=== PATIENT | female | born 1955 | race Caucasian/White ===

== ENCOUNTER 2020-04-09 05:52 | Inpatient (IN) ==
--- NOTE | 2020-04-06 13:19 | History & Physical Report ---
Date of Service April 06, 2020 Assessment & Plan (1) Primary osteoarthritis of right knee: Treatment options discussed with the patient. She has failed conservative therapy as above. Risks, benefits and alternatives to surgery including but not limited to infection, DVT, pain, stiffness, need for revision surgery, damage to blood vessels, damage to nerves, PE, , were discussed with the patient and they wish to proceed. Plan will be for right total knee arthroplasty. Will plan on Aspirin 81mg BID x 1 mo post operatively for DVT prophylaxis and will plan on HHPT post discharge. COVID status is unknown, testing is pending. All questions answered. She will follow up post operatively. History of Present Illness Chief Complaint: Right knee pain Primary Care Provider: TATEJOSHUA OBRIEN Patient is a 65 yo female with PMHx for HTN, high cholesterol, asthma, KEN, GERD, hypothyroid who presents with long standing history of right knee pain. Pain is affecting her ability to carry out her normal daily activities. She has failed conservative therapy including a HEP and weight loss program, cortisone injections, and antiinflammatory medications. She would like to proceed with right knee replacement. Patient denies headaches, sweats, fevers, chills, double vision, blurred vision, cough, sore throat, dysphagia, chest pain, sob, wheezing, n/v/d/c, numbness, tingling, fatigue, urinary symptoms, mood disorders. ROS positive for right knee pain and stiffness. 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 Mild Cough Uncoded 04/03/20 08:00 Home Medications Home Medications Medication Instructions Recorded Confirmed Type budesonide-formoterol [Symbicort] 2 puff INHALATION Q12H 01/06/20 04/03/20 History calcium carbonate-vitamin D3 2 tab PO QAM 01/06/20 04/03/20 History [Calcium 600 with Vitamin D3] diphenhydramine HCl [Benadryl] 25 mg PO HS 01/06/20 04/03/20 History levothyroxine [Synthroid] 175 mcg PO QAM 01/06/20 04/03/20 History montelukast [Singulair] 10 mg PO PM 01/06/20 04/03/20 History multivitamin 1 tab PO QAM 01/06/20 04/03/20 History olmesartan 10 mg PO QAM 01/06/20 04/03/20 History Past Med/Surg History Social History Preferred Language: [place] Ed Physicians Required: No Beliefs That Will Affect Care: None Current Living Situation: Spouse Feels Safe at Home: Yes Safety Concerns: Feels Safe At This Time Smoking Status: Never smoker Do You Dip or Chew Tobacco: No ; Second Hand Exposure: Yes ( A CHILD) ; Tobacco Cessation Education Requested by Patient: No Hx Alcohol Use: No Hx Substance Use: No Review of Systems All systems reviewed & are unremarkable except as noted in HPI & below Physical Exam Constitutional: well developed and well nourished; no acute distress Eyes: PERRL, conjunctivae normal, anicteric sclerae ENMT: external ear and nose normal, oropharynx normal Neck: trachea midline, no thyromegaly Respiratory: normal respiratory effort, lungs clear to auscultation Cardiovascular: RRR, no murmur, no edema Musculoskeletal: Right knee: Skin is normal. No lymphadenopathy is appreciated. Mild effusion, range of motion 2 - 125 flexion, negative anterior drawer, negative posterior drawer, negative Mayi's, knee stable to varus and valgus stress at 0 to 30 of flexion. Tender to palpation medial joint line, positive Leanna's. Mild varus deformity. Skin: no rashes, warm and dry Neurologic: patellar DTR's 2+ bilat, sensation intact Psychiatric: A+Ox3, euthymic affect Results & Data Diagnostic Findings Right knee radiographs: Bone on bone medial compartment and PF compartment with periarticular osteophyte formation in all 3 compartments, subchondral sclerosis.
--- NOTE | 2020-04-06 15:36 | Anesthesiology Consultation ---
Date of Service April 06, 2020 Assessment & Plan (1) Encounter for pre-operative examination: Chart Review Chart Review: Acceptable Risk for Surgery (pending 04/06 Covid testing and DOS labs ) and Patient NOT seen in Pre Admission Testing -Preop labs not updated- CBC and PRP ordered for DOS Per nursing assessment 04/03/2020 = patient resides in [facility]. Only travels to [facility] for medical appointments. Wears mask in public. Scheduled for COVID testing 04/06/2020. Results pending. 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 Mild Cough Uncoded 04/03/20 08:00 Medications Home Medications Medication Instructions Recorded Confirmed Last Taken budesonide-formoterol [Symbicort] 2 puff INHALATION Q12H 01/06/20 04/03/20 Unknown calcium carbonate-vitamin D3 2 tab PO QAM 01/06/20 04/03/20 Unknown [Calcium 600 with Vitamin D3] diphenhydramine HCl [Benadryl] 25 mg PO HS 01/06/20 04/03/20 Unknown levothyroxine [Synthroid] 175 mcg PO QAM 01/06/20 04/03/20 Unknown montelukast [Singulair] 10 mg PO PM 01/06/20 04/03/20 Unknown multivitamin 1 tab PO QAM 01/06/20 04/03/20 Unknown olmesartan 10 mg PO QAM 01/06/20 04/03/20 Unknown Past Medical History Medical History Asthma stable GERD (gastroesophageal reflux disease) controlled Hiatal hernia Hx of eczema Hypertension Hypothyroidism Morbid obesity Osteoarthritis Sleep apnea CPAP Past Family History Family History Father Family history of diabetes mellitus Mother Family history of diabetes mellitus Past Surgical History Surgical History Hx of cardiac cath 20 YR AGO GARCIA Hx of cholecystectomy Hx of colonoscopy Hx of meniscectomy of right knee Hx of total hysterectomy Social History Smoking Status: Never smoker Do You Dip or Chew Tobacco: No Hx Alcohol Use: No Hx Substance Use: No Testing Laboratory Results 01/13/20= PT: 10.3 PTT: 27.1 INR: 1.0 Electrocardiogram Date: 01/13/20 Findings: + NSR @ (74) Chest X-Ray Date: 01/13/20 Findings: + NAD Stress Test Date: 12/03/18 Type: exercise Exercise stress EKG is negative for ischemia at a workload of 7 METS. MPHR =85%
[2020-04-09] MEDS ORDERED: ROPIVACAINE 0.5% HCL/PF 150 MG, BUPIVACAINE 0.5% MPF 30 ML, EPINEPHrine 30MG/30ML (OR U... INFIL SCH (06:00)
[2020-04-09] MEDS ORDERED: LR 500ML BOLUS, THEN 15ML/HR IV SCH (06:00)
[2020-04-09] MEDS ORDERED: BUPIVACAINE 0.5 % 5 MG/1 ML PF 10ML VIAL ONE (06:16)
[2020-04-09] MEDS ORDERED: PROPOFOL IV EMULSION 10 MG/ML 20 ML VIAL IV ONE (06:45)
[2020-04-09] MEDS ORDERED: MIDAZOLAM HCL 1 MG/ML 2ML VIAL ONE (06:45)
[2020-04-09] MEDS ORDERED: LIDOCAINE HCL 2% 2 ML VIAL/AMP(20MG/ML) INFIL ONE (06:45)
[2020-04-09] MEDS ORDERED: KETAMINE HCL INJ 50 MG/ML 10 ML VIAL ONE (06:47)
[2020-04-09] MEDS ORDERED: ATROPINE SULFATE 0.1 MG/ML 10ML SYR IV PRN (06:47)
[2020-04-09] MEDS ORDERED: ONDANSETRON INJ 2 MG/ML 2 ML VIAL IV PRN ×2 (06:47→11:19)
[2020-04-09] MEDS ORDERED: ePHEDrine sulfate 50 MG/ML AMP IV PRN (06:47)
[2020-04-09] MEDS ORDERED: fentaNYL citrate 100 MCG/2 ML VIAL IV PRN (06:47)
--- NOTE | 2020-04-09 07:03 | History & Physical Bridge Note ---
Date of Service April 09, 2020 History & Physical Bridge Note I have examined the patient, reviewed the History & Physical and in the interval since the performance of the History & Physical I have noted the following changes of clinical significance: no changes noted
[2020-04-09] MEDS ORDERED: BACITRACIN INJ 50,000 UNIT VIAL ONE (07:08)
[2020-04-09] MEDS ORDERED: ACETAMINOPHEN 500 MG TAB ONE (07:26)
[2020-04-09] MEDS ORDERED: METOCLOPRAMIDE HCL 10 MG TABLET ONE (07:26)
[2020-04-09] MEDS ORDERED: dexAMETHasone 4 MG TAB PO ONE (07:26)
[2020-04-09] MEDS ORDERED: GABAPENTIN 300 MG CAP ONE (07:26)
[2020-04-09] MEDS ORDERED: FAMOTIDINE 20 MG TAB ONE (07:26)
[2020-04-09] MEDS ORDERED: TRANEXAMIC ACID / 0.7% NACL 1000MG/100ML BAG IV ONE ×3 (07:27→07:46)
[2020-04-09] MEDS ORDERED: CEFAZOLIN 2,000 MG/15 ML IV PUSH IV ONE (07:27)
[2020-04-09] MEDS: CeleBREX 200 MG CAP ONE (07:31)
[2020-04-09] MEDS ORDERED: SCOPOLAMINE 1.5 MG TDSY TD ONE (08:58)
[2020-04-09] MEDS ORDERED: ONDANSETRON INJ 2 MG/ML 2 ML VIAL ONE (08:58)
--- NOTE | 2020-04-09 09:41 | Operative Report ---
Post Operative Report Pre & Post Diagnosis Operation Date: 04/09/20 07:50 Pre-Op Diagnosis: Unilateral Primary Osteoarthritis, Right Knee Post-Op Diagnosis: Unilateral Primary Osteoarthritis, Right Knee I identified the patient and participated in the time-out.: Yes Procedure Operation Date: 04/09/20 07:50 Actual Procedures p Right Total Knee Arthroplasty, Cemented(Right) - Marek Luciano MD Surgeon Marek Luciano MD Dry End Operator Jimenez Styles PA-C Estimated Blood Loss 20 Findings Consistent with Post-Op Diagnosis Specimens Bone and tissue Drains None Anesthesia Type MAC Spinal Regional Complications none Disposition Accompanied Patient To Recovery: No Disposition: Recovery Room Indications The patient is a 65-year-old female longstanding arthritic change in the right knee. She is [id number] medial compartment with arthritic change in the low 3 compartments. She has failed conservative measures including injection, anti- inflammatories, rehab. She wishes to proceed with a right total knee arthroplasty. Description of Procedure Risks benefits and alternatives of surgery including but not limited to infection, DVT, pain, stiffness, need for surgery, damage to blood vessels, damage to nerves or risks of anesthesia were discussed with the patient and they wished to proceed. The patient was identified and the laterality was confirmed and marked. They received a preoperative antibiotic as well as a spinal anesthetic and an abductor canal block. A well-padded tourniquet was applied and then the limb was prepped and draped in standard manner with ChloraPrep. The limb was exsanguinated and the tourniquet was inflated. I made a standard anterior incision. I sharply incised the skin then utilized Bovie electrocautery to achieve hemostasis. I made a medial parapatellar arthrotomy and mobilized the patella laterally. I then excised the anterior horns of the medial and lateral meniscus as well as the infrapatellar fat pad. I elevated a portion of the MCL off of the tibia. I then pinned into place a patient-matched distal femoral cutting guide. She had a significant pr eoperative flexion contracture so I elected to take an additional 2 mm off of the distal femur. The metallic distal femoral cutting guide was placed positioning for additional 2 mm cut. I then made my distal femoral resection. I then pinned into place the 5 in 1 femoral cutting guide. I made my anterior, posterior and chamfer cuts. I then excised the cruciates and the remaining portions of the menisci. I then pinned into place a patient- matched tibial cutting guide and made my tibial resection. I then pinned into place the tibial plate a utilizing alignment kieran to confirm rotation. I then cut for the post. Utilizing a lamina wire wrapper machine operator and I then removed posterior osteophytes off the femur. I then placed a trial femur into position and cut for the trochlear component. I then sequentially trialed to size the polyethylene until there was good soft tissue balancing and range of motion. I then prepared the patella with a freehand cut utilizing sagittal saw. I sized and drilled for the patella. There was good tracking to the patella no lateral release was needed. All the trial components were removed. The deep tissues were anesthetized with an ortho mix solution. Then with Simplex HV with gentamicin cement, I cemented my definitive components. Definitive components, Coreas and Nephew Lilian 2: Femur 6 Tibia 4 Poly 9 Patella 29 oval A betadine soak was performed. The arthrotomy was closed with interrupted #1 Vicryl suture subcutaneous tissue was closed with interrupted 2-0 Vicryl suture. The skin was closed with with wood. An Acticoat and Jessica dressing were placed. Sterile dressings were applied. All needle and sponge counts were correct at the end of the procedure patient was transferred to the PACU in stable condition without apparent complication. The PA-C was necessary for assistance with procedure for assistance in positioning, prepping, draping, retraction and closure. I attest to the content of the Intraoperative Record and any orders documented therein. Any exceptions are noted below.
--- NOTE | 2020-04-09 10:37 | Anesthesiology Progress Note ---
Date of Service April 09, 2020 Anesthesia Post Procedure Vital Signs Vital Signs: Temp Pulse Pulse Resp BP Pulse Ox 04/09/20 10:30 70 16 124/64 95 04/09/20 10:20 72 18 128/63 93 04/09/20 10:14 97.2 F L 72 13 123/60 97 04/09/20 06:28 97.9 F 92 H 16 174/86 H 97 Pain Intensity Right Knee: Pain Intensity: 0 Transfer of Care Handoff Completed per policy Notes Mental Status: alert / awake / arousable and participated in evaluation Patient Amnestic to Procedure: Yes Nausea / Vomiting: adequately controlled Pain: adequately controlled Airway Patency, RR, SpO2: stable & adequate BP & HR: stable & adequate Hydration State: stable & adequate Neuraxial Anesthesia: was administered and sensory block is resolving Anesthetic Complications: no major complications apparent and Pt Satisfied with anesthetic care
--- NOTE | 2020-04-09 10:41 | XRay Report ---
XR knee RT 1 or 2V routine HISTORY: 65 years-old Female Surgical Post Op right knee total joint arthroplasty. History of degene rative joint disease COMPARISON: None TECHNIQUE: 2 views of the right knee FINDINGS: Right knee total joint arthroplasty and patella resurfacing. Anterior midline skin wood are noted along with expected postsurgical soft tissue swelling and deep tissue air with surgical drainage cath eter. Satisfactory alignment without acute fracture or retained foreign body. IMPRESSION: Right knee total joint arthroplasty with expected postoperative findings. ACT 112: Negative or not required by law. The above report was generated using voice recognition software. It may contain grammatical, syntax o r spelling errors. Electronically signed by: Joaquin Dover M.D. 04/09/2020 10:39 AM
[2020-04-09] MEDS ORDERED: NALOXONE HCL 0.4 MG/1 ML VIAL/CARP IV PRN (11:19)
[2020-04-09] MEDS ORDERED: OXYCODONE HCL IR 5 MG TAB (IMMEDIATE RELEASE) PO PRN (11:19)
[2020-04-09] MEDS ORDERED: METOCLOPRAMIDE HCL INJ 5 MG/ML 2 ML VIAL IV PRN (11:19)
[2020-04-09] MEDS ORDERED: bisacodyL 10 MG SUPP PR PRN (11:19)
[2020-04-09] MEDS ORDERED: SODIUM CHLORIDE 0.9% 1000ML 1,000 ML IV SCH (11:19)
[2020-04-09] MEDS ORDERED: HYDROmorphone INJ 0.5 MG/0.5 ML SYR IV PRN (11:19)
[2020-04-09] MEDS ORDERED: MAGNESIUM HYDROXIDE SUSP 30 ML UDC PO PRN (11:19)
[2020-04-09] MEDS: ACETAMINOPHEN 500 MG TAB PO SCH ×2 (14:05→21:00)
[2020-04-09] MEDS: CEFAZOLIN 2000MG 2,000 MG/15 ML SYR IV SCH (15:33)
[2020-04-09] MEDS ORDERED: MONTELUKAST SODIUM 10 MG TABLET PO SCH (21:00)
[2020-04-09] MEDS: ASPIRIN 81 MG ECTAB PO SCH (21:00)
[2020-04-09] MEDS ORDERED: CeleBREX 200 MG CAP PO SCH (21:00)
[2020-04-09] MEDS: DOCUSATE SODIUM 100 MG CAP PO SCH (21:00)
[2020-04-09] MEDS ORDERED: SENNA 8.6 MG TAB PO SCH (21:00)
[2020-04-10] MEDS: CEFAZOLIN 2000MG 2,000 MG/15 ML SYR IV SCH (00:19)
[2020-04-10] MEDS: ACETAMINOPHEN 500 MG TAB PO SCH ×2 (05:51→10:35)
[2020-04-10 06:16] LABS: Hematocrit (blood only) 31.7 % (37-47); Mean Corpuscular Hemoglobin 33.1 pg (25-34); Mean Corpuscular Hgb Conc 34.7 g/dL (32-36); Mean Corpuscular Volume 95.5 fL (80-100); Mean Platelet Volume 10.2 fL (7.4-10.4); Platelet Count 276 K/uL (130-400); RDW Coefficient of Variation 13.5 % (11.5-14.5); RDW Standard Deviation 46.8 fL (36.4-46.3); Red Blood Count 3.32 M/uL (4.2-5.4)
[2020-04-10] MEDS ORDERED: LEVOTHYROXINE SODIUM 175 MCG TABLET PO SCH (06:30)
[2020-04-10 06:53] LABS: BUN Creatinine Ratio 18.3 (10-20); Calcium 8.6 mg/dl (8.5-10.1); Creatinine Clr Calc Pharmacy 61.7 ml/min; Est GFR (African American) 54.2; Est GFR (Non-African American) 46.8; Potassium 3.8 mmol/L (3.5-5.1)
--- NOTE | 2020-04-10 07:12 | Orthopedic Progress Note ---
Date of Service April 10, 2020 Assessment & Plan (1) Primary osteoarthritis of right knee: POD#1 Right TKA -PT/OT -Pain management -DVT prophylaxis-SCDs, ASA 81mg BID, TEDs -AM labs-hemoglobin at 11 this morning. Mild elevation of creatinine to 1.2. -D/C planning-home with HHPT likely later today as long as PT goes well. Admission and Anticipated Discharge Date Admission Date: April 09, 2020 Subjective Patient is seen in bed resting comfortably. She is doing well, pain well controlled. Has been up ambulating without difficulty. No chest pain, sob, light headedness, dizziness. Review of Systems Review of Systems: All systems reviewed & are unremarkable except as noted in HPI & below Physical Exam Physical Exam: Dressing to right knee is c/d/i. Toes mobile, good dorsiflexion. No calf tenderness, calf soft. Distally n/v status and sensation intact. Constitutional: well developed and well nourished; no acute distress Results & Data ([facility]) Vital Signs (Past 12 Hours) Vital Signs Temp Pulse Pulse Resp BP Pulse Ox 04/10/20 06:53 36.4 C L 87 16 109/60 93 04/10/20 03:42 68 16 96 04/10/20 03:11 36.6 C 69 18 107/66 97 04/09/20 23:47 36.9 C 77 16 108/65 94 04/09/20 21:37 65 16 95 04/09/20 20:19 75 16 103/57 L 94 Laboratory Results H & H 04/10/20 Range/Units 05:57 Hgb 11.0 L (12.0-16.0) g/dL Hct 31.7 L (37-47) %
[2020-04-10] MEDS: ASPIRIN 81 MG ECTAB PO SCH (08:57)
[2020-04-10] MEDS: DOCUSATE SODIUM 100 MG CAP PO SCH (08:57)
[2020-04-10] MEDS ORDERED: CALCIUM 600MG + VIT D 400 IU TAB PO SCH (09:00)
[2020-04-10] MEDS ORDERED: OLMESARTAN MEDOXOMIL 5 MG TAB PO SCH (09:00)
[2020-04-10] MEDS ORDERED: MULTIVITAMIN TAB PO SCH ×2 (09:00)
[2020-04-10] MEDS ORDERED: FLUTICASONE/VILANTEROL 200/25MCG 14 PUFFS/INHALER INH SCH (09:00)
--- NOTE | 2020-04-11 15:29 | Discharge Summary ---
Date of Service April 11, 2020 Admission HPI Per Admitting Provider Patient is a 65 yo female with PMHx for HTN, high cholesterol, asthma, KEN, GERD, hypothyroid who presents with long standing history of right knee pain. Pain is affecting her ability to carry out her normal daily activities. She has failed conservative therapy including a HEP and weight loss program, cortisone injections, and antiinflammatory medications. She would like to proceed with right knee replacement. Patient denies headaches, sweats, fevers, chills, double vision, blurred vision, cough, sore throat, dysphagia, chest pain, sob, wheezing, n/v/d/c, numbness, tingling, fatigue, urinary symptoms, mood disord ers. ROS positive for right knee pain and stiffness. Admission Exam Per Admitting Provider Constitutional: well developed and well nourished; no acute distress Eyes: PERRL, conjunctivae normal, anicteric sclerae ENMT: external ear and nose normal, oropharynx normal Neck: trachea midline, no thyromegaly Respiratory: normal respiratory effort, lungs clear to auscultation Cardiovascular: RRR, no murmur, no edema Musculoskeletal: Right knee: Skin is normal. No lymphadenopathy is appreciated. Mild effusion, range of motion 2 - 125 flexion, negative anterior drawer, negative posterior drawer, negative Mayi's, knee stable to varus and valgus stress at 0 to 30 of flexion. Tender to palpation medial ahmet int line, positive Leanna's. Mild varus deformity. Skin: no rashes, warm and dry Neurologic: patellar DTR's 2+ bilat, sensation intact Psychiatric: A+Ox3, euthymic affect Principal Diagnosis Right knee osteoarthritis Discharge Exam Constitutional well developed and well nourished; no acute distress Eyes PERRL, conjunctivae normal, anicteric sclerae ENMT external ear and nose normal, oropharynx normal Neck trachea midline, no thyromegaly Respiratory normal respiratory effort, lungs clear to auscultation Cardiovascular RRR, no murmur, no edema Skin no rashes, warm and dry Neurologic patellar DTR's 2+ bilat, sensation intact Psychiatric A+Ox3, euthymic affect Discharge Data Allergies Allergy/AdvReac Type Severity Reaction Status Date / Time codeine AdvReac Mild GI upset, Verified 04/09/20 06:21 dizziness 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 She tolerated procedure well. The Patient had an uneventful hospital course. Post-operatively, her activity was progressed and well tolerated. They participated in PT with ambulation distance of 400 feet. ROM of operative knee reached 97 degrees. Labs remained stable- lowest hemoglobin recorded: 11, mild increase in creatinine to 1.22. Pain controlled on oral medications. Please refer to daily progress notes and PT notes for complete details. After exam on 04/10/20, patient was felt to be stable for discharge home with home health PT. Patient will f/u in the office in about 2 weeks for further evaluation including x-rays and incision check, sooner if having any issues or concerns. POD#1 Right TKA -PT/OT -Pain management -DVT prophylaxis-SCDs, ASA 81mg BID, TEDs -AM labs-hemoglobin at 11 this morning. Mild elevation of creatinine to 1.2. -D/C planning-home with HHPT likely later today as long as PT goes well. Total Time Total Time Spent Total Time Spent (In Minutes): 20 Discharge Plan Discharge Items Patient Disposition: Home - Home Health Services Reason For Visit: Unilateral Primary Osteoarthritis, Right Knee Discharge Diagnosis: Right knee osteoarthritis Activity: Per Instructions section Non-emergency contact: Surgeon Call non-emergency contact if: you have any medication questions, your pain is not controlled, your pain is worsening, your pain is concerning for you, you have a fever, your temperature is above 101, your wound has increased redness, your wound has increased drainage and your wound pain has increased Follow-up/Referrals: TATE OBRIEN D.O. [Primary Care Provider] - Diet: Regular Addtl Attending Provider Instructions: ACTIVITY RECOMMENDATIONS: SELF CARE INSTRUCTIONS AFTER TOTAL KNEE REPLACEMENT A. You may need to continue a physical therapy program after discharge from the hospital. There are several options available to you. Your doctor will assist you in selecting the best one for you. 1. An out-patient facility 2 to 3 times a week for therapy or home therapy. 2. Continue working on all exercises taught to you in the hospital. Your goals should be to increase bending of your knee to 90 degrees and beyond and to fully straighten your knee. B. You may progress at your own pace from walking with a walker or crutches to a cane; then to no assistive devices. C. Make walking a part of your daily routine. Be up as much as comfortable with rest periods throughout the day. Rest with leg elevation is very important. Use the ice wrap frequently for the first 3-4 weeks. D. There are no restrictions on activities. You may ride in a car, shop, participate in grading machine feeder and all social activities. E. Wear the long elastic stockings (MIRA hose) 20 hours a day for 2 weeks after surgery. They can be removed several times a day for laundering and for a bath. F. You may shower, no tub baths until cleared by your doctor. SPECIAL CARE INSTRUCTIONS: VERY IMPORTANT TO READ AND REVIEW A. There are a few signs you need to watch for after you are home. Call [facility] if you notice any of the followin. Increased severe knee pain. Some pain is expected especially when you exercise. 2. Increased swelling in your leg or knee; pain or swelling of the calf muscle in either lower leg. 3. Any fluid drainage from the incision. 4. Shortness of breath or chest pain. B. Please call [facility] at if you have any concerns or questions about your operation or recovery. The doctor or his nurse will return your call promptly. C. You must take antibiotics before dental work, bladder, bowel or other surgery. Your doctor will provide you with a permanent care to carry describing this precaution. IMPORTANT: * REMEMBER TO TAKE ASPIRIN, 81 MG, TWICE DAILY FOR 4 WEEKS UNLESS OTHERWISE DIRECTED. THIS IS YOUR BLOOD THINNER. * HIGH RISK PATIENTS MAY BE PRESCRIBED A STRONGER BLOOD THINNER. THIS WILL BE PROVIDED AT DISCHARGE. * CALL IF INCREASED PAIN, REDNESS, DRAINAGE OR FEVER GREATER THAT 101. * WEAR MIRA HOSE 20 HOURS PER DAY FOR 2 WEEKS. This is a large suction dressing covering your incision. This will help pull any excess drainage from the wound and allow your incision to heal properly. You may shower with this if you can keep the unit outside of the shower. If any bleeding or leakage is noted please call your doctor's office. This will remain on your incision for 7 days and then should be removed. This can be done yourself or by the home nursing staff if applicable. The entire unit is disposable once removed. Once removed, keep incision clean and dry. If redness or drainage is noted, please call your surgeon. FOLLOW UP VISIT: If appointment is not already scheduled: Please call [facility] to make a follow-up appointment for 2 weeks after your surgery at . Pending Studies at Discharge: No Stand-Alone Forms: [facility] [employer], Opioid Pain Management, Smoking Cessation Medications and DC Order Prescriptions: New aspirin 81 mg Tablet,Delayed Release (Dr/Ec) 81 mg PO BID Qty: 60 RF: 0 acetaminophen 500 mg Tablet 1,000 mg PO Q8 Qty: 60 RF: 0 oxycodone 5 mg Tablet 5 - 10 mg PO .Q4H-6H MDD 6 PRN (Reason: pain) Qty: 30 RF: 0 docusate sodium 100 mg Capsule 100 mg PO BID Qty: 30 RF: 0 Continued multivitamin Tablet 1 tab PO QAM RF: 0 levothyroxine [Synthroid] 175 mcg Tablet 175 mcg PO QAM RF: 0 diphenhydramine HCl [Benadryl] 25 mg Capsule 25 mg PO HS RF: 0 montelukast [Singulair] 10 mg Tablet 10 mg PO PM RF: 0 olmesartan 20 mg Tablet 10 mg PO QAM RF: 0 budesonide-formoterol [Symbicort] 160-4.5 mcg/actuation Hfa Aerosol Inhaler 2 puff INHALATION Q12H RF: 0 Calcium 600 with Vitamin D3 600 mg(1,500mg) -400 unit Tablet,Chewable 2 tab PO QAM RF: 0 Discharge Orders: Discharge Order (Routine); Ordered 04/10/20 Ordered By: Jimenez Styles Admission Data Admit Date/Time: 04/09/20 10:24 Attending Provider: Marek Luciano Admit Provider: Marek Luciano Primary Care Provider: TATE OBRIEN Other Interventions: Discharge Summary Assessment (RN) Last Done: 04/10/20 09:41 DC Date/Time DO NOT enter until pt leaves facility: 04/10/20 11:09
== END 2020-04-10 11:09 | disposition home health service (06) | DRG 470 ==
LOC: ASU 05:52 → 3E 10:24

== ENCOUNTER 2020-08-11 06:07 | Inpatient (IN) ==
--- NOTE | 2020-07-17 11:29 | Anesthesiology Consultation ---
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 Mild Cough Uncoded 07/17/20 10:58 Medications Home Medications Medication Instructions Recorded Confirmed Last Taken Calcium 600 with Vitamin D3 2 tab PO QAM 01/06/20 07/17/20 02/08/20 budesonide-formoterol [Symbicort] 2 puff INHALATION Q12H 01/06/20 07/17/20 03/09/20 diphenhydramine HCl [Benadryl] 25 mg PO HS 01/06/20 07/17/20 04/08/20 20:00 levothyroxine [Synthroid] 175 mcg PO QAM 01/06/20 07/17/20 04/09/20 03:30 montelukast [Singulair] 10 mg PO PM 01/06/20 07/17/20 04/07/20 multivitamin 1 tab PO QAM 01/06/20 07/17/20 04/02/20 olmesartan 10 mg PO QAM 01/06/20 07/17/20 04/08/20 06:00 acetaminophen 1,000 mg PO Q8 #60 tab 04/10/20 07/17/20 Unknown aspirin 81 mg PO BID #60 tab 04/10/20 07/17/20 Unknown docusate sodium 100 mg PO BID #30 cap 04/10/20 07/17/20 Unknown allopurinol 100 mg PO QPM 07/17/20 07/17/20 Unknown ergocalciferol (vitamin D2) 1,250 mcg PO 2XWK 07/17/20 07/17/20 Unknown [Vitamin D2] Past Medical History Medical History Asthma stable GERD (gastroesophageal reflux disease) controlled Gout Hiatal hernia Hx of eczema Hypertension Hypothyroidism Morbid obesity Osteoarthritis Sleep apnea CPAP Exercise / Class Metabolic Activity III < 4 Walking/Shop/Light housework Past Family History Family History Father Family history of diabetes mellitus Mother Family history of diabetes mellitus Past Surgical History Surgical History History of right knee joint replacement 04/09/2020 [facility] Hx of cardiac cath 20 YR AGO GARCIA - no stents Hx of cholecystectomy Hx of colonoscopy Hx of meniscectomy of right knee Hx of total hysterectomy Past Anesthesia History No Hx of Anesthesia Complications and No Family Hx of Anesthesia Complications History of PONV No Hx of PONV and No Hx of Motion Sickness Social History Smoking Status: Never smoker Do You Dip or Chew Tobacco: No Hx Alcohol Use: No Hx Substance Use: No Testing Laboratory Results Blood Type A Positive 07/16/20 11:19 Antibody Screen NEGATIVE 07/16/20 11:19 Electrocardiogram Date: 01/13/20 Findings: + NSR @ (@ 74) Chest X-Ray Date: 01/13/20 Findings: + NAD Stress Test Date: 12/03/18 Type: exercise Findings: + WNL
--- NOTE | 2020-07-31 09:32 | History & Physical Report ---
Date of Service July 31, 2020 date of surgery: 08/11/20 procedure: Left Total Knee Arthroplasty Assessment & Plan (1) Arthritis of knee, left: Risks and benefits of procedure discussed in detail today, patient would like to proceed with a Left total knee replacement at [facility] as scheduled. obtain PATs at [facility]. Will place on ASA 81mg po bid x 1 month post op, f/u 2 weeks post op for routine post-operative care and x-ray, sooner if having any problems. will make arrangements for HHPT at the time of discharge. At this point in time, has failed conservative measures and would like to proceed with surgical intervention. The risks and benefits have been discussed including, but not limited to, risk of infection, nerve injury, stiffness, loss of motion, failure to improve, etc. Reasonable outcomes and options of treatment were discussed. An explanation of appropriate alternatives to the procedure that may be advantageous were discussed and their risks and benefits, as well as the risks and benefits of not proceeding with treatment. I offered to answer any additional inquiries concerning the treatment involved. All the patient's questions were answered. The patient is agreeable, understanding of the treatment plan and alternatives, and wishes to proceed with the treatment plan. History of Present Illness Chief Complaint: left knee pain Primary Care Provider: Law Dunbar DO Samantha is a 65 year old female who complains of left knee pain, presents for pre- op evaluation prior to a left total knee replacement by dr Lopez at [facility]. she complains of pain, crepitus, decreased range of motion, instability and stiffness in her left knee. She states that the symptoms have been chronic and non-traumatic. Currently the patient states that the symptoms are moderate- severe. The pain is described as aching, sharp and throbbing. The symptoms occur continuously. The symptoms are aggravated by ascending stairs, daily activities, first steps while awake walking. Prior NSAIDs include Aleve and Motrin. She has failed conservative therapy including a HEP and weight loss program, cortisone injections, and antiinflammatory medications. 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 Mild Cough Uncoded 07/17/20 10:58 Home Medications Home Medications Medication Instructions Recorded Confirmed Type Calcium 600 with Vitamin D3 2 tab PO QAM 01/06/20 07/17/20 History budesonide-formoterol [Symbicort] 2 puff INHALATION Q12H 01/06/20 07/17/20 History diphenhydramine HCl [Benadryl] 25 mg PO HS 01/06/20 07/17/20 History levothyroxine [Synthroid] 175 mcg PO QAM 01/06/20 07/17/20 History montelukast [Singulair] 10 mg PO PM 01/06/20 07/17/20 History multivitamin 1 tab PO QAM 01/06/20 07/17/20 History olmesartan 10 mg PO QAM 01/06/20 07/17/20 History acetaminophen 1,000 mg PO Q8 #60 tab 04/10/20 07/17/20 Rx aspirin 81 mg PO BID #60 tab 04/10/20 07/17/20 Rx docusate sodium 100 mg PO BID #30 cap 04/10/20 07/17/20 Rx allopurinol 100 mg PO QPM 07/17/20 07/17/20 History ergocalciferol (vitamin D2) 1,250 mcg PO 2XWK 07/17/20 07/17/20 History [Vitamin D2] Past Med/Surg History Medical History Asthma stable GERD (gastroesophageal reflux disease) controlled Gout Hiatal hernia Hx of eczema Hypertension Hypothyroidism Morbid obesity Osteoarthritis Sleep apnea CPAP Surgical History History of right knee joint replacement 04/09/2020 [facility] Hx of cardiac cath 20 YR AGO GARCIA - no stents Hx of cholecystectomy Hx of colonoscopy Hx of meniscectomy of right knee Hx of total hysterectomy Family History Father Family history of diabetes mellitus Mother Family history of diabetes mellitus Social History Smoking Status: Never smoker Second Hand Exposure: Yes (as a child); Hx Alcohol Use: No Hx Substance Use: No Preferred Language: Kinyarwanda Communication Ability: Effective Hand Reamer Required: No Beliefs That Will Affect Care: None Current Living Situation: Spouse Feels Safe at Home: Yes Assistive Devices: CPAP, Glasses and Walker Review of Systems Review of Systems: All systems reviewed & are unremarkable except as noted in HPI & below Constitutional: no fever, no chills and no sweats Respiratory: no cough and no dyspnea Cardiovascular: no chest pain, no dyspnea and no orthopnea Gastrointestinal: no abdominal pain, no nausea and no vomiting Musculoskeletal: as per Subjective / HPI Physical Exam Physical Exam: HT: 5ft 6in WT: 117kg BP: 132/96 Constitutional: WD/WN, vitals as above no acute distress Respiratory: normal respiratory effort, lungs clear to auscultation no respiratory distress, no labored breathing and does not use accessory muscles Cardiovascular: RRR, no murmur, no edema Gastrointestinal (Abdomen): normal bowel sounds, soft, nontender, no hepato splenomegaly Musculoskeletal: Knee: + knee abnormal to inspection (left knee- ), + effusion (+1 effusion), + limited ROM of knee (ROM 0/3/110), + knee ROM with crepitation, + joint line tenderness (medial joint line) and + Leanna's sign positive; no deformity, no skin erythema, no ecchymosis, no surgical incision, no valgus laxity, no varus laxity, anterior drawer test negative, Mayi's sign negative and pivot shift test negative Results & Data Results & Data ([facility]) Diagnostic Findings Left Knee X-ray: left knee series confirm advanced degenerative changes to the left knee, greatest medial compartments and patellofemoral joint, showing joint space narrowing, osteophyte formation and subchondral sclerosis. no acute bony pathology noted.
[~2020-08-11 06:07] MED LIST: ACETAMINOPHEN 500 MG TAB PO SCH; CeleBREX 200 MG CAP PO SCH; FAMOTIDINE 20 MG TAB PO SCH; GABAPENTIN 600 MG DOSE PO SCH; LR 500ML BOLUS, THEN 15ML/HR IV SCH; METOCLOPRAMIDE HCL 10 MG TABLET PO SCH; ROPIVACAINE 0.5% HCL/PF 150 MG, BUPIVACAINE 0.5% MPF 30 ML, EPINEPHrine 30MG/30ML (OR U... INFIL SCH; TRANEXAMIC ACID 1,000 MG **IV Intra-op IV SCH; TRANEXAMIC ACID 1,000 MG **IV Pre-op IV SCH; ceFAZolin 2000MG 2,000 MG/15 ML SYR IV SCH; dexAMETHasone 4 MG TAB PO SCH
[2020-08-11] MEDS ORDERED: BUPIVACAINE/EPINEPHRINE 0.25% 1:200,000 30 ML VIAL ONE (06:31)
[2020-08-11] MEDS ORDERED: BUPIVACAINE 0.5 % 5 MG/1 ML PF 10ML VIAL ONE (06:31)
[2020-08-11] MEDS ORDERED: fentaNYL citrate 100 MCG/2 ML VIAL ONE (07:18)
[2020-08-11] MEDS ORDERED: MIDAZOLAM HCL 1 MG/ML 2ML VIAL ONE ×2 (07:18)
[2020-08-11] MEDS ORDERED: LIDOCAINE HCL 2% 2 ML VIAL/AMP(20MG/ML) INFIL ONE (07:19)
[2020-08-11] MEDS ORDERED: PROPOFOL IV EMULSION 10 MG/ML 20 ML VIAL IV ONE ×3 (07:19→10:20)
[2020-08-11] MEDS ORDERED: PHENYLEPHRINE 100MCG/ML 5ML SYR ONE (07:19)
[2020-08-11] MEDS ORDERED: ePHEDrine sulfate 50 MG/ML SYR ONE (07:19)
--- NOTE | 2020-08-11 07:35 | History & Physical Bridge Note ---
Date of Service August 11, 2020 History & Physical Bridge Note I have examined the patient, reviewed the History & Physical and in the interval since the performance of the History & Physical I have noted the following changes of clinical significance: no changes noted
[2020-08-11] MEDS ORDERED: BACITRACIN INJ 50,000 UNIT VIAL ONE (07:40)
[2020-08-11] MEDS ORDERED: ORTHO JOINT ANESTHETIC ONE (07:40)
[2020-08-11] MEDS ORDERED: HYDROmorphone INJ 2 MG/ML SYR/VIAL IV PRN (08:10)
[2020-08-11] MEDS ORDERED: ONDANSETRON INJ 2 MG/ML 2 ML VIAL IV PRN ×2 (08:10→12:30)
[2020-08-11] MEDS ORDERED: PROMETHAZINE HCL 12.5 MG in SODIUM CHLORIDE 0.9% 50 ML IV PRN (08:10)
[2020-08-11] MEDS ORDERED: ATROPINE SULFATE 0.1 MG/ML 10ML SYR IV PRN (08:10)
[2020-08-11] MEDS ORDERED: ePHEDrine sulfate 50 MG/ML AMP IV PRN (08:10)
[2020-08-11] MEDS ORDERED: fentaNYL citrate 100 MCG/2 ML VIAL IV PRN (08:10)
--- NOTE | 2020-08-11 10:12 | Operative Report ---
Post Operative Report Pre & Post Diagnosis Operation Date: 08/11/20 08:35 Pre-Op Diagnosis: Left Knee Osteoarthritis Post-Op Diagnosis: Left Knee Osteoarthritis I identified the patient and participated in the time-out.: Yes Procedure Operation Date: 08/11/20 08:35 Actual Procedures p Left Total Knee Arthroplasty(Left) utilizing [employer] journey 2 patient matched total knee arthroplasty size 5 femur 4 tibia 9 polyethylene 29 oval patella- Pedro Lopez DO Surgeon Pedro Lopez DO Professional Development Manager Alfredo TRAN Estimated Blood Loss 5 Findings Consistent with Post-Op Diagnosis Patient presents with severe end-stage tricompartmental degenerative joint disease left knee varus alignment subchondral cystic changes marginal osteophytes subchondral eburnated [id number] with moderate to large effusion Specimens Bone and cartilage Drains Medium bore Hemovac Anesthesia Type MAC Spinal Regional Complications none Disposition Accompanied Patient To Recovery: No Disposition: Recovery Room Indications Patient presents with severe end-stage tricompartmental degenerative joint disease no response to conservative basically physical therapy anti- inflammatories relative rest activity modification corticosteroid injections viscosupplementation the above intraoperative findings were noted Description of Procedure After proper prepping and draping of the left lower extremity anterior midline incision was made over the region of the extensor extensor mechanism after meticulous hemostasis was obtained and maintained in subcutaneous tissues a medial parapatellar incision was made The patella was subluxed lateralward the medial lateral gutter were cleaned from any hypertrophic synovitis and scar tissue of the distal femoral block was placed and the distal femoral osteotomy cut was made subsequently the chamfers anterior and posterior osteotomy cuts were made utilizing the 4-in-1 block the tibia was subsequently subluxed anteriorward medial and ateral meniscal remnants were excised in their entirety remnants of the anterior and posterior cruciate ligaments were excised in their entirety excellent exposure of the proximal tibia was obtained the tibial osteotomy guide was placed on the proximal tibial osteotomy cut was made once again the knee was irrigated with copious amounts of sterile saline solution the patella was subsequently everted lateralward thickened scar tissue around the patella was removed the patella was subsequently cut utilizing a freehand technique and was drilled prepared for final preparation and placement of patella socially flexion-extension gaps were checked and the equal and symmetric trials were placed to the appropriate femoral and tibial trials with poly-spacer being placed for equal flexion and extension gaps and full range of motion including extension to 0 and flexion to 140 the trial components after having been taken to recovery range of motion was subsequently removed meticulous hemostasis was obtained and maintained subsequently a knee block injection of joint cocktail including ropivacaine 0.5% 150 mg. Bupivacaine 0.5% epinephrine 1-200,030 mL's toradol 30 mg dexamethasone 4 mg ketamine 10 mg clonidine 100 micrograms normal saline solution 30 mg was infiltrated into the soft tissues of the posterior knee medial lateral gutters and periosteal synovium special attention was paid to protect neurovascular structures at all times subsequently trial components having been removed the knee was irrigated with sterile saline solution. debris was removed the proximal tibia was subsequently prepared and was made ready for the placement of the tibial component tibial component was also cemented and tamped into position the femoral component was subsequently placed and cemented in the position the patellar component was subsequently cemented in position because hemostasis once again obtained and maintained wound having been thoroughly irrigated with debridement and debridement lavage was performed as well as a medial parapatellar incision closed with #1 Vicryl in interrupted fashion subcutaneous was closed with #2 Vicryl skin was closed with skin clips. PA-C was necessary for prepping and drapping as well as wound closure of deep fascia Sub cutaneous tissue and skin and was necessary for the case. A sterile compressive dressing was placed patient was taken to recovery in stable condition of report dictated by John I attest to the content of the Intraoperative Record and any orders documented therein. Any exceptions are noted below. I attest to the content of the Intraoperative Record and any orders documented therein. Any exceptions are noted below.
--- NOTE | 2020-08-11 10:15 | Operative Report ---
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 Alfredo TRAN Estimated Blood Loss 5 Findings Consistent with Post-Op Diagnosis Patient presents with severe end-stage tricompartmental degenerative joint disease varus alignment subchondral cystic changes marginal osteophytes varus alignment moderate to large effusion Specimens Bone and cartilage Drains Medium bore Hemovac Anesthesia Type MAC Spinal Regional Complications none Disposition Accompanied Patient To Recovery: No Disposition: Recovery Room Indications Patient presents after failed attempted conservative management with physical therapy anti-inflammatories relative rest activity modification corticosteroid injections Visco supplementation the above intraoperative findings were noted Description of Procedure After proper prepping and draping of the left lower extremity anterior midline incision was made over the region of the extensor extensor mechanism after meticulous hemostasis was obtained and maintained in subcutaneous tissues a medial parapatellar incision was made The patella was subluxed lateralward the medial lateral gutter were cleaned from any hypertrophic synovitis and scar tissue of the distal femoral block was placed and the distal femoral osteotomy cut was made subsequently the chamfers anterior and posterior osteotomy cuts were made utilizing the 4-in-1 block the tibia was subsequently subluxed anteriorward medial and ateral meniscal remnants were excised in their entirety remnants of the anterior and posterior cruciate ligaments were excised in their entirety excellent exposure of the proximal tibia was obtained the tibial osteotomy guide was placed on the proximal tibial osteotomy cut was made once again the knee was irrigated with copious amounts of sterile saline solution the patella was subsequently everted lateralward thickened scar tissue around the patella was removed the patella was subsequently cut utilizing a freehand technique and was drilled prepared for final preparation and placement of patella socially flexion-extension gaps were checked and the equal and symmetric trials were placed to the appropriate femoral and tibial trials with poly-spacer being placed for equal flexion and extension gaps and full range of motion including extension to 0 and flexion to 140 the trial components after having been taken to recovery range of motion was subsequently removed meticulous hemostasis was obtained and maintained subsequently a knee block injection of joint cocktail including ropivacaine 0.5% 150 mg. Bupivacaine 0.5% epinephrine 1-200,030 mL's toradol 30 mg dexamethasone 4 mg ketamine 10 mg clonidine 100 micrograms normal saline solution 30 mg was infiltrated into the soft tissues of the posterior knee medial lateral gutters and periosteal synovium special attention was paid to protect neurovascular structures at all times subsequently trial components having been removed the knee was irrigated with sterile saline solution. debris was removed the proximal tibia was subsequently prepared and was made ready for the placement of the tibial component tibial component was also cemented and tamped into position the femoral component was subsequently placed and cemented in the position the patellar component was subsequently cemented in position because hemostasis once again obtained and maintained wound having been thoroughly irrigated with debridement and debridement lavage was performed as well as a medial parapatellar incision closed with #1 Vicryl in interrupted fashion subcutaneous was closed with #2 Vicryl skin was closed with skin clips. PA-C was necessary for prepping and drapping as well as wound closure of deep fascia Sub cutaneous tissue and skin and was necessary for the case. A sterile compressive dressing was placed patient was taken to recovery in stable condition of report dictated by John I attest to the content of the Intraoperative Record and any orders documented therein. Any exceptions are noted below. I attest to the content of the Intraoperative Record and any orders documented therein. Any exceptions are noted below.
--- NOTE | 2020-08-11 11:28 | XRay Report ---
XR knee LT 1 or 2V routine CLINICAL HISTORY: Surgical Post Op COMPARISON: None. DISCUSSION: There are postsurgical changes of a total left knee arthroplasty and patellar resurfacing . The femoral tibial components appear well seated. Overlying skin wood and surgical drains are ev ident. There is gas within the soft tissues consistent with recent surgery IMPRESSION: Postsurgical changes of a total left knee arthroplasty. ACT 112: Negative or not required by law. Electronically signed by: Kaiden Oliva M.D. 08/11/2020 11:27 AM
--- NOTE | 2020-08-11 12:19 | Anesthesiology Progress Note ---
Date of Service August 11, 2020 Anesthesia Post Procedure Vital Signs Vital Signs: Temp Pulse Pulse Pulse Resp BP BP 08/11/20 12:06 36.6 C 84 16 112/67 08/11/20 11:40 77 16 121/58 L 08/11/20 11:30 36.6 C 79 15 115/58 L 08/11/20 11:20 77 14 113/61 08/11/20 11:10 83 16 119/56 L 08/11/20 11:00 90 16 124/59 L 08/11/20 10:54 36.2 C L 94 H 16 130/62 08/11/20 06:40 36.7 C 90 20 168/78 H Pulse Ox 08/11/20 12:06 95 08/11/20 11:40 96 08/11/20 11:30 95 08/11/20 11:20 97 08/11/20 11:10 95 08/11/20 11:00 94 08/11/20 10:54 95 08/11/20 06:40 98 Pain Intensity Left Knee: Pain Intensity: 0 Transfer of Care Handoff Completed per policy Notes Mental Status: alert / awake / arousable and participated in evaluation Patient Amnestic to Procedure: Yes Nausea / Vomiting: adequately controlled Pain: adequately controlled Airway Patency, RR, SpO2: stable & adequate BP & HR: stable & adequate Hydration State: stable & adequate Anesthetic Complications: no major complications apparent and Pt Satisfied with anesthetic care
[2020-08-11] MEDS ORDERED: bisacodyL 10 MG SUPP PR PRN (12:30)
[2020-08-11] MEDS ORDERED: HYDROmorphone INJ 0.5 MG/0.5 ML SYR IV PRN (12:30)
[2020-08-11] MEDS ORDERED: NALOXONE HCL 0.4 MG/1 ML VIAL/CARP IV PRN (12:30)
[2020-08-11] MEDS ORDERED: MAGNESIUM HYDROXIDE SUSP 30 ML UDC PO PRN (12:30)
[2020-08-11] MEDS: SODIUM CHLORIDE 0.9% 1000ML 1,000 ML IV SCH (13:54)
[2020-08-11] MEDS: ACETAMINOPHEN 500 MG TAB PO SCH ×2 (13:54→22:11)
[2020-08-11] MEDS: ceFAZolin 2000MG 2,000 MG/15 ML SYR IV SCH (15:46)
[2020-08-11] MEDS: FERROUS GLUCONATE 324 MG TAB PO SCH (17:58)
[2020-08-11] MEDS: DOCUSATE SODIUM 100 MG CAP PO SCH (19:51)
[2020-08-11] MEDS ORDERED: DOCUSATE SODIUM 100 MG CAP PO SCH (21:00)
[2020-08-11] MEDS ORDERED: MONTELUKAST SODIUM 10 MG TABLET PO SCH (21:00)
[2020-08-11] MEDS ORDERED: allopurinoL 100 MG TAB PO SCH (21:00)
[2020-08-11] MEDS ORDERED: SENNA 8.6 MG TAB PO SCH (21:00)
[2020-08-12] MEDS: SODIUM CHLORIDE 0.9% 1000ML 1,000 ML IV SCH (00:34)
[2020-08-12] MEDS: ceFAZolin 2000MG 2,000 MG/15 ML SYR IV SCH (00:34)
[2020-08-12] MEDS: oxyCODONE HCL IR 5 MG TAB (IMMEDIATE RELEASE) PO PRN ×2 (00:43→10:58)
[2020-08-12] MEDS: ACETAMINOPHEN 500 MG TAB PO SCH ×2 (06:08→14:28)
[2020-08-12] MEDS ORDERED: LEVOTHYROXINE SODIUM 175 MCG TABLET PO SCH (06:30)
[2020-08-12 07:00] LABS: Hematocrit (blood only) 32.8 % (37-47); Hemoglobin 10.6 g/dL (12.0-16.0); Mean Corpuscular Hemoglobin 30.5 pg (25-34); Mean Corpuscular Hgb Conc 32.3 g/dL (32-36); Mean Corpuscular Volume 94.5 fL (80-100); Mean Platelet Volume 10.4 fL (7.4-10.4); Platelet Count 276 K/uL (130-400); RDW Coefficient of Variation 13.2 % (11.5-14.5); RDW Standard Deviation 45.5 fL (36.4-46.3); Red Blood Count 3.47 M/uL (4.2-5.4); White Blood Count 17.89 K/uL (4.8-10.8)
--- NOTE | 2020-08-12 07:08 | Orthopedic Progress Note ---
Date of Service August 12, 2020 Assessment & Plan (1) History of total left knee replacement: POD #1 s/p Left TKA pt/ot dvt proph with [facility]/SCD/ASA plan for d/c home with HHPT, recheck after PT today Admission and Anticipated Discharge Date Admission Date: August 11, 2020 Subjective POD #1 s/p Left TKA Review of Systems Constitutional: no fever, no chills and no sweats Respiratory: no cough and no dyspnea Cardiovascular: no chest pain and no dyspnea Gastrointestinal: no abdominal pain, no nausea and no vomiting Physical Exam Physical Exam: Vital Signs Temp 36.6 C 08/12/20 03:00 Pulse 87 08/12/20 03:00 Resp 16 08/12/20 03:00 BP 138/78 08/12/20 03:00 Pulse Ox 96 08/12/20 03:00 Intake & Output 08/11/20 08/12/20 08/12/20 18:59 06:59 18:59 Intake Total 2775 / 5735 2960 / 5735 Output Total 435 / 2535 2100 / 2535 Balance 2340 / 3200 860 / 3200 Weight 115.7 kg Intake: IV 1000 / 2660 1660 / 2660 Lr 1,000 ml @ 15 mls/hr IV . 900 / 900 Q24H [facility] Rx#:[id number] Nss 1000ML 1,0 00 ml @ 100 mls/ 1560 / 1560 hr IV .Q10H SC H Rx#:[id number] TRANEXAMIC ACI D / 0.7% NACL 1, 100 / 200 100 / 200 000 mg In 100 ml @ 600 mls/hr IV TODAY@0600 [facility] Rx#:[id number] IV Perioperative 1300 / 1300 Oral 475 / 1775 1300 / 1775 Output: Urine 425 / 2175 1750 / 2175 Estimated Blood Loss 5 / 5 Drain Output 5 / 355 350 / 355 Left Knee 200 / 200 Left Knee Hemo vac 5 / 155 150 / 155 Constitutional: WD/WN, vitals as above no acute distress Musculoskeletal: Left Leg: NVDI, calf SNT, negative sen sign. DP palpable, able to wiggle toes/ankle movement without difficulty. dressing clean dry and intact. Results & Data ([facility]) Vital Signs (Past 12 Hours) Vital Signs Temp Pulse Resp BP Pulse Ox 08/12/20 03:00 36.6 C 87 16 138/78 96 08/11/20 23:04 36.4 C L 74 16 113/65 97 08/11/20 19:09 36.8 C 72 16 125/68 93 Laboratory Results Laboratory Results WBC 17.89 K/uL (4.8-10.8) H 08/12/20 06:41 RBC 3.47 M/uL (4.2-5.4) L 08/12/20 06:41 Hgb 10.6 g/dL (12.0-16.0) L 08/12/20 06:41 Hct 32.8 % (37-47) L 08/12/20 06:41 MCV 94.5 fL (80-100) 08/12/20 06:41 MCH 30.5 pg (25-34) 08/12/20 06:41 MCHC 32.3 g/dL (32-36) 08/12/20 06:41 RDW Std Deviation 45.5 fL (36.4-46.3) 08/12/20 06:41 RDW Coeff of Lenard 13.2 % (11.5-14.5) 08/12/20 06:41 Plt Count 276 K/uL (130-400) 08/12/20 06:41 MPV 10.4 fL (7.4-10.4) 08/12/20 06:41 Blood Type A Positive 07/16/20 11:19 Antibody Screen NEGATIVE 07/16/20 11:19 Diagnostic Findings XR knee LT 1 or 2V routine CLINICAL HISTORY: Surgical Post Op COMPARISON: None. DISCUSSION: There are postsurgical changes of a total left knee arthroplasty and patellar resurfacing. The femoral tibial components appear well seated. Overlying skin wood and surgical drains are evident. There is gas within the soft tissues consistent with recent surgery IMPRESSION: Postsurgical changes of a total left knee arthroplasty.
[2020-08-12 07:33] LABS: BUN Creatinine Ratio 17.1 (10-20); Calcium 8.8 mg/dl (8.5-10.1); Creatinine Clr Calc Pharmacy 69.9 ml/min; Est GFR (African American) 64.3; Est GFR (Non-African American) 55.4; Potassium 4.1 mmol/L (3.5-5.1)
[2020-08-12] MEDS: FERROUS GLUCONATE 324 MG TAB PO SCH (08:49)
[2020-08-12] MEDS: DOCUSATE SODIUM 100 MG CAP PO SCH (08:50)
[2020-08-12] MEDS ORDERED: MULTIVITAMIN TAB PO SCH ×2 (09:00)
[2020-08-12] MEDS ORDERED: FLUTICASONE/VILANTEROL 200/25MCG 14 PUFFS/INHALER INH SCH (09:00)
[2020-08-12] MEDS ORDERED: OLMESARTAN MEDOXOMIL 20 MG TAB PO SCH (09:00)
[2020-08-12] MEDS ORDERED: ASPIRIN 81 MG ECTAB PO SCH (15:15)
--- NOTE | 2020-08-18 07:45 | Discharge Summary ---
Date of Service August 18, 2020 Admission HPI Per Admitting Provider Samantha is a 65 year old female who complains of left knee pain, presents for pre- op evaluation prior to a left total knee replacement by dr Lopez at [facility]. she complains of pain, crepitus, decreased range of motion, instability and stiffness in her left knee. She states that the symptoms have been chronic and non-traumatic. Currently the patient states that the symptoms are moderate- severe. The pain is described as aching, sharp and throbbing. The symptoms occur continuously. The symptoms are aggravated by ascending stairs, daily activities, first steps while awake walking. Prior NSAIDs include Aleve and Motrin. She has failed conservative therapy including a HEP and weight loss program, cortisone injections, and antiinflammatory medications. Admission Exam Per Admitting Provider Physical Exam: HT: 5ft 6in WT: 117kg BP: 132/96 Constitutional: WD/WN, vitals as above no acute distress Respiratory: normal respiratory effort, lungs clear to auscultation no respiratory distress, no labored breathing and does not use accessory muscles Cardiovascular: RRR, no murmur, no edema Gastrointestinal (Abdomen): normal bowel sounds, soft, nontender, no hepatosplenomegaly Musculoskeletal: Knee: + knee abnormal to inspection (left knee- ), + effusion (+1 effusion), + limited ROM of knee (ROM 0/3/110), + knee ROM with crepitation, + joint line tenderness (medial joint line) and + Leanna's sign positive; no deformity, no skin erythema, no ecchymosis, no surgical incision, no valgus laxity, no varus laxity, anterior drawer test negative, Mayi's sign negative and pivot shift test negative Principal Diagnosis djd left knee Discharge Exam Constitutional: WD/WN, vitals as above no acute distress Musculoskeletal: Left Leg: NVDI, calf SNT, negative sen sign. DP palpable, able to wiggle toes/ankle movement without difficulty. dressing clean dry and intact. Discharge Data Allergies Allergy/AdvReac Type Severity Reaction Status Date / Time codeine AdvReac Mild GI upset, Verified 08/11/20 06:36 dizziness [employer] AdvReac Mild Cough Uncoded 08/11/20 06:36 Consultations 08/11/20 12:30 Consult Case Management - Discharge Planning Routine Procedures Performed Operation Date: 08/11/20 08:35 Actual Procedures p Left Total Knee Arthroplasty(Left) - Pedro Lopez DO Ordered Studies 08/11/20 05:00 US - OR guided needle placemen Stat US guide needle placement Stat Hospital Course (1) Arthritis of knee, left: Addendum (Blank) Addendum August 12, 2020 13:40 Progressing well in PT. Pain controlled. VSS, Afeb. Plan for dc to home today. Dressing change and drain removal prior to DC. Addendum Signed By:<Electronically signed by Alfredo Carreon PA-C>08/12/201340 Addendum Cosigned By:<Electronically signed by Markus Barraza MD>08/12/20 161 Created: 08/12/20 Date of Service August 12, 2020 Assessment & Plan (1) History of total left knee replacement: POD #1 s/p Left TKA pt/ot dvt proph with [facility]/SCD/ASA plan for d/c home with HHPT, recheck after PT today Admission and Anticipated Discharge Date Admission Date: August 11, 2020 Subjective POD #1 s/p Left TKA Review of Systems Constitutional: no fever, no chills and no sweats Respiratory: no cough and no dyspnea Cardiovascular: no chest pain and no dyspnea Gastrointestinal: no abdominal pain, no nausea and no vomiting Physical Exam Physical Exam: Vital Signs Temp 36.6 C 08/12/20 03:00 Pulse 87 08/12/20 03:00 Resp 16 08/12/20 03:00 BP 138/78 08/12/20 03:00 Pulse Ox 96 08/12/20 03:00 Intake & Output 08/11/20 08/12/20 08/12/20 18:59 06:59 18:59 Intake Total 2775 / 5735 2960 / 5735 Output Total 435 / 2535 2100 / 2535 Balance 2340 / 3200 860 / 3200 Weight 115.7 kg Intake: IV 1000 / 2660 1660 / 2660 Lr 1,000 ml @ 15 mls/hr IV . 900 / 900 Q24H ELIZABETH Rx#:[id number] Nss 1000ML 1,0 00 ml @ 100 mls/ 1560 / 1560 hr IV .Q10H SC H Rx#:[id number] TRANEXAMIC ACI D / 0.7% NACL 1, 100 / 200 100 / 200 000 mg In 100 ml @ 600 mls/hr IV TODAY@0600 [facility] Rx#:[id number] IV Perioperative 1300 / 1300 Oral 475 / 1775 1300 / 1775 Output: Urine 425 / 2175 1750 / 2175 Estimated Blood Loss 5 / 5 Drain Output 355 350 / 355 Left Knee 200 / 200 Left Knee Hemo vac 5 / 155 150 / 155 Constitutional: WD/WN, vitals as above no acute distress Musculoskeletal: Left Leg: NVDI, calf SNT, negative sen sign. DP palpable, able to wiggle toes/ankle movement without difficulty. dressing clean dry and intact. Results & Data ([facility]) Vital Signs (Past 12 Hours) Vital Signs Temp Pulse Resp BP Pulse Ox 08/12/20 03:00 36.6 C 87 16 138/78 96 08/11/20 23:04 36.4 C L 74 16 113/65 97 08/11/20 19:09 36.8 C 72 16 125/68 93 Laboratory Results Laboratory Results WBC 17.89 K/uL (4.8-10.8) H 08/12/20 06:41 RBC 3.47 M/uL (4.2-5.4) L 08/12/20 06:41 Hgb 10.6 g/dL (12.0-16.0) L 08/12/20 06:41 Hct 32.8 % (37-47) L 08/12/20 06:41 Total Time Total Time Spent Total Time Spent (In Minutes): 5 Discharge Plan Discharge Items Patient Disposition: Home - Home Health Services Reason For Visit: Left Knee Osteoarthritis Discharge Diagnosis: left total knee replacement Activity: Per Instructions section Lifting: Wait until after follow-up appointment Weightbearing: Full weightbearing Weightbearing Comment: WBAT with walker Non-emergency contact: Surgeon Call non-emergency contact if: you have any medication questions, your temperature is above 101, your wound has increased redness, your wound has increased drainage and your wound pain has increased Follow-up/Referrals: Law Dunbar DO [Primary Care Provider] - Diet: Regular Addtl Attending Provider Instructions: ACTIVITY RECOMMENDATIONS: SELF CARE INSTRUCTIONS AFTER TOTAL KNEE REPLACEMENT A. You may need to continue a physical therapy program after discharge from the hospital. There are several options available to you. Your doctor will assist you in selecting the best one for you. 1. An out-patient facility 2 to 3 times a week for therapy or home therapy. 2. Continue working on all exercises taught to you in the hospital. Your goals should be to increase bending of your knee to 90 degrees and beyond and to fully straighten your knee. B. You may progress at your own pace from walking with a walker or crutches to a cane; then to no assistive devices. C. Make walking a part of your daily routine. Be up as much as comfortable with rest periods throughout the day. Rest with leg elevation is very important. Use the ice wrap frequently for the first 3-4 weeks. D. There are no restrictions on activities. You may ride in a car, shop, participate in greenhouse staff and all social activities. E. Wear the long elastic stockings (MIRA hose) 20 hours a day for 2 weeks after surgery. They can be removed several times a day for laundering and for a bath. F. You may shower, no tub baths until cleared by your doctor. SPECIAL CARE INSTRUCTIONS: VERY IMPORTANT TO READ AND REVIEW A. There are a few signs you need to watch for after you are home. Call [facility] if you notice any of the followin. Increased severe knee pain. Some pain is expected especially when you exercise. 2. Increased swelling in your leg or knee; pain or swelling of the calf muscle in either lower leg. 3. Any fluid drainage from the incision. 4. Shortness of breath or chest pain. B. Please call [facility] at if you have any concerns or questions about your operation or recovery. The doctor or his nurse will return your call promptly. C. You must take antibiotics before dental work, bladder, bowel or other surgery. Your doctor will provide you with a permanent care to carry describing this precaution. IMPORTANT: * REMEMBER TO TAKE ASPIRIN, 81 MG, TWICE DAILY FOR 4 WEEKS UNLESS OTHERWISE DIRECTED. THIS IS YOUR BLOOD THINNER. * HIGH RISK PATIENTS MAY BE PRESCRIBED A STRONGER BLOOD THINNER. THIS WILL BE PROVIDED AT DISCHARGE. * CALL IF INCREASED PAIN, REDNESS, DRAINAGE OR FEVER GREATER THAT 101. * WEAR MIRA HOSE 20 HOURS PER DAY FOR 2 WEEKS. * GIBRAN Dressing- This is a large suction dressing covering your incision. This will help pull any excess drainage from the wound and allow your incision to heal properly. You may shower with this if you can keep the unit outside of the shower. If any bleeding or leakage is noted please call your doctor's off ice. This will remain on your incision for 7 days and then should be removed. This can be done yourself or by the home nursing staff if applicable. The entire unit is disposable once removed. Once removed, keep incision clean and dry. If redness or drainage is noted, please call your surgeon. IF INCISION IS LEAKING THROUGH DRESSING, CALL THE OFFICE . FOLLOW UP VISIT: If appointment is not already scheduled: Please call [facility] to make a follow-up appointment for 2 weeks after your surgery at . Stand-Alone Forms: My [facility] [employer], Opioid Pain Management, Smoking Cessation Medications and DC Order Prescriptions: New oxycodone 5 mg Tablet 5 - 10 mg PO Q6H PRN (Reason: pain) Qty: 30 RF: 0 cefadroxil 500 mg capsule 500 mg PO BID 10 Days Qty: 20 RF: 0 celecoxib [Celebrex] 200 mg capsule 200 mg PO BID 30 Days Qty: 60 RF: 0 Continued allopurinol 100 mg Tablet 100 mg PO QPM RF: 0 ergocalciferol (vitamin D2) [Vitamin D2] 1,250 mcg (50,000 unit) Capsule 1,250 mcg PO 2XWK RF: 0 multivitamin Tablet 1 tab PO QAM RF: 0 levothyroxine [Synthroid] 175 mcg Tablet 175 mcg PO QAM RF: 0 diphenhydramine HCl [Benadryl] 25 mg Capsule 25 mg PO HS RF: 0 montelukast [Singulair] 10 mg Tablet 10 mg PO PM RF: 0 olmesartan 20 mg Tablet 10 mg PO QAM RF: 0 budesonide-formoterol [Symbicort] 160-4.5 mcg/actuation Hfa Aerosol Inhaler 2 puff INHALATION Q12H RF: 0 Calcium 600 with Vitamin D3 600 mg(1,500mg) -400 unit Tablet,Chewable 2 tab PO QAM RF: 0 aspirin 81 mg Tablet,Delayed Release (Dr/Ec) 81 mg PO BID Qty: 60 RF: 0 acetaminophen 500 mg Tablet 1,000 mg PO Q8 Qty: 60 RF: 0 docusate sodium 100 mg Capsule 100 mg PO BID Qty: 30 RF: 0 Discharge Orders: Discharge Order (Routine); Ordered 08/12/20 Ordered By: Alfredo Luna/Other Patient Handouts: DVT Post Op Prevention Admission Data Admit Date/Time: 08/11/20 11:05 Attending Provider: Pedro Lopez Admit Provider: Pedro Lopez Primary Care Provider: Law Dunbar Other Interventions: Discharge Summary Assessment (RN) Last Done: 08/12/20 11:40
== END 2020-08-12 16:20 | disposition home or self-care (01) | DRG 470 ==
LOC: 3E 06:07 → ASU 06:07 → OBSVTOIN 11:05